=== PATIENT | female | born 1935 | race Caucasian/White ===

== ENCOUNTER 2017-03-12 11:29 | Emergency (ER) | payer OTHER ==
[2017-03-12 11:33] VITALS: BP 165/72; PULSE 72; TEMP 98.5; BMI 23.8
--- NOTE | 2017-03-12 11:56 | PDOC ---
History of Present Illness - General Chief Complaint: Injury Stated Complaint: RT WRIST/HAND INJURY Time Seen by Provider: 03/12/17 11:41 History Source: Patient Exam Limitations: No Limitations - History of Present Illness Initial Comments: 03/12/17 11:51 81 yr female with c/o laceration to the right hand after injury yesterday with a broken watch. Pt has applied bacitracin and bandaid. 03/12/17 17:50 Past History - Past Medical History Allergies/Adverse Reactions: Allergies Allergy/AdvReac Type Severity Reaction Status Date / Time No Known Allergies Allergy Verified 03/12/17 11:33 Cardiac Disorders: Yes (ANGINA,) HTN: Yes - Psycho/Social/Smoking Cessation Hx Anxiety: No Suicidal Ideation: No Smoking History: Never smoked Hx Alcohol Use: No Drug/Substance Use Hx: No Substance Use Type: None *Physical Exam - Vital Signs Last Vital Signs Temp Pulse Resp BP Pulse Ox 98.5 F 72 18 165/72 97 03/12/17 11:30 03/12/17 11:30 03/12/17 11:30 03/12/17 11:30 03/12/17 11:30 - Physical Exam General Appearance: Yes: Nourished, Appropriately Dressed HEENT: positive: EOMI, PAUL Neck: positive: Supple Respiratory/Chest: positive: Lungs Clear, Normal Breath Sounds Cardiovascular: positive: Regular Rhythm, Regular Rate Musculoskeletal: positive: Normal Inspection Extremity: positive: Normal Capillary Refill, Normal Inspection, Normal Range of Motion, Other (right dorsal surface with 1.0cm superficial skin tear , no active bleeding ) Integumentary: positive: Normal Color, Dry, Warm Neurologic: positive: Fully Oriented, Alert, Normal Mood/Affect, Normal Response , Motor Strength 5/5 Procedures - Additional Procedures Progress: 03/12/17 17:53 wound cleaned with saline, bacitracin placed and bandage placed nv intact Medical Decision Making - Medical Decision Making 03/12/17 17:54 cc: skin tear right hand on broken watch, no deformity nv intact tetanus is UTD states patient. wound is clean, pt had bacitracin placed prior to arrival wound cleaned and re-dressed dc inst given to pt and her follow up Tuesday with PMD *DC/Admit/Observation/Transfer Diagnosis at time of Disposition: Skin tear of hand without complication Qualifiers: Encounter type: initial encounter Laterality: right Qualified Code(s): S61.411A - Laceration without foreign body of right hand, initial encounter - Discharge Dispostion Disposition: HOME Condition at time of disposition: Good - Referrals Referrals: Panchito Richards MD [Primary Care Provider] - - Patient Instructions Additional Instructions: keep clean and dry apply bacitracin and bandaid daily follow with your doctor next week for a follow up wound check
== END 2017-03-12 12:04 | disposition home or self-care (01) ==
LOC: JERFT 11:29
DX: S61.411A Laceration without foreign body of right hand, initial encounter (principal); W45.8XXA Other foreign body or object entering through skin, initial encounter; W22.8XXA Striking against or struck by other objects, initial encounter; Y93.89 Activity, other specified; Y92.89 Other specified places as the place of occurrence of the external cause
CPT/HCPCS: 99281-25

== ENCOUNTER 2018-12-10 08:46 | Emergency (ER) | payer OTHER ==
[2018-12-10 08:51] VITALS: BP 163/62; PULSE 97; TEMP 97.8; BMI 22.3
--- NOTE | 2018-12-10 09:35 | PDOC ---
History of Present Illness - General Chief Complaint: Rash Stated Complaint: RASH Time Seen by Provider: 12/10/18 09:29 History Source: Patient, Care Provider Exam Limitations: No Limitations - History of Present Illness Initial Comments: 12/10/18 09:29 83 yo Fw/ a h/o angina, HTN, HLD comes in with daughter c/o diffuse generalized itchy rash which started 2 days ago after starting amoxicillin for a toothache. She took 3 doses total and started developing the rash. SHe has taken amoxicillin in the past without any issues. She called her dentist who told her to stop the antibiotic, prescribed her clindamycin which she took twice but the rash persists and even more itchy sometimes, hence the ED visit. NO other complaints today, no fever/chills, no NVD, no chest tightness, no throat tightness, no difficulty swallowing, no difficulty breathing, no shortness of breath, no swelling anywhere, no lip swelling/eye swelling. Pt also took benadryl 25mg BID Pt initially went to the dentist because her tooth was sensitive, painful and the gum around was a a little red. Pt is now symptom free, the tooth no longer hurts, is not sensitive and the gum redness resolved. NO face swelling/pain, no ear pain. 12/10/18 09:53 Past History - Past Medical History Allergies/Adverse Reactions: Allergies Allergy/AdvReac Type Severity Reaction Status Date / Time No Known Allergies Allergy Verified 12/10/18 08:50 Home Medications: Ambulatory Orders Amlodipine Besylate 5 mg PO DAILY 04/09/18 Aspirin [Ecotrin] 81 mg PO DAILY 04/09/18 Levothyroxine Sodium [Levoxyl] 50 mcg PO DAILY 04/09/18 Lisinopril 30 mg PO BID 04/09/18 Metoprolol Succinate 50 mg PO DAILY 04/09/18 Simvastatin 20 mg PO HS 04/09/18 Clindamycin [Cleocin -] 300 mg PO TID 12/10/18 Hydrocortisone 1% Cream [Hytone 1% Cream -] 1 applic TP BID #2 tube 12/10/18 Cardiac Disorders: Yes (ANGINA,) COPD: No HTN: Yes - Suicide/Smoking/Psychosocial Hx Smoking History: Never smoked Hx Alcohol Use: No Drug/Substance Use Hx: No Substance Use Type: None Review of Systems - Review of Systems Able to Perform ROS?: Yes Constitutional: No: Chills, Fever, Malaise, Night Sweats HEENTM: No: Eye Pain, Recent change in vision, Throat Pain Respiratory: No: Cough, Shortness of Breath Cardiac (ROS): No: Chest Pain, Palpitations, Chest Tightness ABD/GI: No: Diarrhea, Nausea, Vomiting, Abdominal cramping : No: Dysuria, Hematuria Musculoskeletal: No: Back Pain Integumentary: Yes: Rash Neurological: No: Headache, Numbness, Dizziness Psychiatric: No: Change in Appetite Endocrine: No: Unexplained Weight Loss *Physical Exam - Vital Signs Last Vital Signs Temp Pulse Resp BP Pulse Ox 97.8 F 97 H 18 163/62 99 12/10/18 08:47 12/10/18 08:47 12/10/18 08:47 12/10/18 08:47 12/10/18 08:47 - Physical Exam General Appearance: Yes: Nourished. No: Apparent Distress HEENT: positive: PAUL, Normal ENT Inspection, Normal Voice, Other (no uvula edema/erythema, no angioedema. Poor dentition, R upper jaw missing all molar teeth, premolar tooth in question without tenderness, no gum erythema, no fluctuance, no pus, no discharge, no swelling, no signs of infection). negative : Pale Conjunctivae, Scleral Icterus (R), Scleral Icterus (L), Pharyngeal Erythema Neck: positive: Supple. negative: Decreased range of motion, Stridor, Tender midline Respiratory/Chest: positive: Lungs Clear, Normal Breath Sounds. negative: Respiratory Distress, Accessory Muscle Use, Wheezing Cardiovascular: positive: Regular Rhythm, Regular Rate Gastrointestinal/Abdominal: positive: Normal Bowel Sounds, Soft. negative: Tender Musculoskeletal: positive: Normal Inspection. negative: CVA Tenderness, Decreased Range of Motion Extremity: positive: Normal Capillary Refill, Normal Inspection, Normal Range of Motion. negative: Tender, Pedal Edema Integumentary: positive: Normal Color, Dry, Rash (diffuse macupopapular erythematous rash with some urticarial areas on upper and lower extremities, back and torso, no vesicles, no burrows.). negative: Jaundice Neurologic: positive: Fully Oriented, Alert, Normal Mood/Affect Moderate Sedation - Procedure Monitoring Vital Signs: Procedure Monitoring Vital Signs Temperature 97.8 F 12/10/18 08:47 Pulse Rate 97 H 12/10/18 08:47 Respiratory Rate 18 12/10/18 08:47 Blood Pressure 163/62 12/10/18 08:47 O2 Sat by Pulse Oximetry (%) 99 12/10/18 08:47 Medical Decision Making - Medical Decision Making 12/10/18 09:50 83 yo F w/ rash, likely reaction to amoxicillin. Tooth in question without any signs of infection at the moment, no gum erythema, no pus, no discharge, no fluctuance. Will stop antibiotics for now. Will give benadryl 50mg 2-3 times a day, with hydrocortisone cream, which daughter prefers over systemic steroids. Pt will see PMD tomorrow for follow up and will make a follow up appointment with the dentist. Return for worsening/concerning symptoms *DC/Admit/Observation/Transfer Diagnosis at time of Disposition: Rash Allergic reaction Qualifiers: Encounter type: initial encounter Qualified Code(s): T78.40XA - Allergy, unspecified, initial encounter - Discharge Dispostion Disposition: HOME Condition at time of disposition: Stable - Prescriptions Prescriptions: Hydrocortisone 1% Cream [Hytone 1% Cream -] 1 applic TP BID #2 tube - Referrals Referrals: Panchito Richards MD [Primary Care Provider] - - Patient Instructions Printed Discharge Instructions: DI for Adverse Drug Reaction -- Allergic Additional Instructions: STOP amoxicillin and clindamycin, take benadryl 50mg 2-3 times a day as needed for 2-3 days. APply cortisone cream for 2-3 days and see your regular doctor tomorrow morning for reassessment. Return for worsening/concerning symptoms including difficulty breathing/swallowing, worsening rash. - Post Discharge Activity
== END 2018-12-10 09:54 | disposition home or self-care (01) ==
LOC: JERFT 08:46
DX: L27.0 Generalized skin eruption due to drugs and medicaments taken internally (principal); T36.0X5A Adverse effect of penicillins, initial encounter; Y92.018 Other place in single-family (private) house as the place of occurrence of the external cause; I25.119 Atherosclerotic heart disease of native coronary artery with unspecified angina pectoris; I10 Essential (primary) hypertension; E78.5 Hyperlipidemia, unspecified
CPT/HCPCS: 99281-25

== ENCOUNTER 2023-01-18 08:38 | Observation (INO) | payer OTHER ==
[2023-01-18 08:51] VITALS: BMI 22.6
[2023-01-18 09:40] LABS: BASO % 0.9 % (0-2.0); EOS % 4.2 % (0-4.5); HEMATOCRIT 39.5 % (32.4-45.2); LYMPH % 16.3 % (8-40); MCH 32.1 pg (25.7-33.7); MCHC 35.3 g/dl (32.0-36.0); MEAN CELL VOLUME 90.9 fl (80-96); NEUT % 67.6 % (42.8-82.8); PLATELET COUNT 386 10^3/uL (134-434); RBC 4.35 M/mm3 (3.60-5.2); RDW 13.1 % (11.6-15.6); WHITE BLOOD COUNT 7.3 K/mm3 (4.0-10.0)
[2023-01-18 09:46] LABS: INR 0.99 (0.83-1.09); PROTHROMBIN TIME (PATIENT) 11.5 SEC (9.7-13.0)
[2023-01-18 09:49] LABS: ACTIVATED PTT 33.9 SECONDS (25.2-36.5)
[2023-01-18 10:00] LABS: CALCIUM 9.6 mg/dL (8.5-10.1)
[2023-01-18 10:01] LABS: ALBUMIN 4.1 g/dl (3.4-5.0)
[2023-01-18 10:04] LABS: CREATININE 0.9 mg/dL (0.55-1.3)
[2023-01-18 10:06] LABS: BILIRUBIN,TOTAL 0.3 mg/dL (0.2-1); TOT PROT 8.2 g/dl (6.4-8.2)
[2023-01-18 10:37] LABS: PH,URINE 7.5 (5.0-8.0); URINE APPEARANCE CLEAR; URINE BILIRUBIN NEGATIVE (NEGATIVE); URINE COLOR YELLOW; URINE GLUCOSE (UA) NEGATIVE (NEGATIVE); URINE KETONE NEGATIVE (NEGATIVE); URINE LEUK ESTERASE NEGATIVE (NEGATIVE); URINE NITRITE NEGATIVE (NEGATIVE); URINE PROTEIN NEGATIVE (NEGATIVE); URINE UROBILINOGEN 0.2 mg/dL (0.2-1.0)
[2023-01-18] MEDS ORDERED: amLODIPine BESYLATE 5 MG TABLET (FP) PO ONE (12:56)
[2023-01-18] MEDS ORDERED: ACETAMINOPHEN 325 MG TABLET (FP) PO PRN (12:56)
[2023-01-18] MEDS ORDERED: amLODIPine BESYLATE 5 MG TABLET (FP) ONE (13:43)
[2023-01-18] MEDS ORDERED: ALPRAZolam 0.25 MG TABLET ONE (17:42)
[2023-01-18] MEDS: ALPRAZolam 0.25 MG TABLET PO PRN (17:45)
[2023-01-19] MEDS ORDERED: ATORVASTATIN CA 80 MG TABLET (FP) ONE (01:24)
[2023-01-19] MEDS: ATORVASTATIN CA 80 MG TABLET (FP) PO SCH ×3 (01:42→21:01)
[2023-01-19 06:42] LABS: HEMATOCRIT 36.4 % (32.4-45.2); HEMOGLOBIN 12.8 GM/dL (10.7-15.3); MCH 31.9 pg (25.7-33.7); MCHC 35.1 g/dl (32.0-36.0); MEAN CELL VOLUME 90.9 fl (80-96); PLATELET COUNT 351 10^3/uL (134-434); RBC 4.01 M/mm3 (3.60-5.2); RDW 13.1 % (11.6-15.6); WHITE BLOOD COUNT 7.8 K/mm3 (4.0-10.0)
[2023-01-19 07:01] LABS: ALBUMIN 3.7 g/dl (3.4-5.0); BILIRUBIN,TOTAL 0.4 mg/dL (0.2-1); BLOOD UREA NITROGEN 21.2 mg/dL (7-18); CALCIUM 9.3 mg/dL (8.5-10.1)
[2023-01-19 07:05] LABS: CREATININE 0.8 mg/dL (0.55-1.3)
[2023-01-19 07:06] LABS: TOT PROT 7.3 g/dl (6.4-8.2)
[2023-01-19] MEDS ORDERED: CLOPIDOGREL BISULFATE 75 MG TABLET (FP) ONE (09:05)
[2023-01-19] MEDS ORDERED: ASPIRIN COATED 81 MG TABLET.EC ONE (09:05)
[2023-01-19] MEDS ORDERED: amLODIPine BESYLATE 5 MG TABLET (FP) ONE (09:05)
[2023-01-19] MEDS: ASPIRIN COATED 81 MG TABLET.EC PO SCH (09:11)
[2023-01-19] MEDS: amLODIPine BESYLATE 5 MG TABLET (FP) PO SCH (09:11)
[2023-01-19] MEDS: CLOPIDOGREL BISULFATE 75 MG TABLET (FP) PO SCH (09:11)
[2023-01-19] MEDS ORDERED: ALPRAZolam 0.25 MG TABLET ONE (09:57)
[2023-01-19] MEDS: ALPRAZolam 0.25 MG TABLET PO PRN ×2 (10:03→20:31)
[2023-01-19] MEDS: VALSARTAN 80 MG TABLET PO SCH (13:10)
[2023-01-20] MEDS: LEVOTHYROXINE NA 88 MCG TABLET (FP) PO SCH (06:30)
[2023-01-20] MEDS: VALSARTAN 80 MG TABLET PO SCH (09:57)
[2023-01-20] MEDS: ASPIRIN COATED 81 MG TABLET.EC PO SCH (09:57)
[2023-01-20] MEDS: CLOPIDOGREL BISULFATE 75 MG TABLET (FP) PO SCH (09:57)
[2023-01-20] MEDS: amLODIPine BESYLATE 5 MG TABLET (FP) PO SCH (09:57)
[2023-01-20] MEDS ORDERED: ATORVASTATIN CA 20 MG TABLET (FP) PO SCH (12:41)
[2023-01-20] MEDS: DONEPEZIL HCL 5 MG TABLET (FP) PO SCH (15:01)
[2023-01-20] MEDS: ALPRAZolam 0.25 MG TABLET PO PRN (21:18)
[2023-01-21] MEDS: LEVOTHYROXINE NA 88 MCG TABLET (FP) PO SCH (06:45)
[2023-01-21 07:01] VITALS: RESP 20
[2023-01-21 08:35] VITALS: BP 147/73; PULSE 56; TEMP 98
[2023-01-21] MEDS: amLODIPine BESYLATE 5 MG TABLET (FP) PO SCH (09:47)
[2023-01-21] MEDS: DONEPEZIL HCL 5 MG TABLET (FP) PO SCH (09:47)
[2023-01-21] MEDS: VALSARTAN 80 MG TABLET PO SCH (09:47)
[2023-01-21] MEDS: ASPIRIN COATED 81 MG TABLET.EC PO SCH (09:48)
[2023-01-21] MEDS ORDERED: ACETAMINOPHEN 325 MG TABLET (FP) PO PRN (11:34)
[2023-01-21] MEDS ORDERED: ALPRAZolam 0.25 MG TABLET PO PRN (11:34)
[2023-01-21] MEDS ORDERED: ATORVASTATIN CA 20 MG TABLET (FP) PO SCH (22:00)
[2023-01-22] MEDS ORDERED: LEVOTHYROXINE NA 88 MCG TABLET (FP) PO SCH (07:00)
[2023-01-22] MEDS ORDERED: amLODIPine BESYLATE 5 MG TABLET (FP) PO SCH (10:00)
[2023-01-22] MEDS ORDERED: VALSARTAN 80 MG TABLET PO SCH (10:00)
[2023-01-22] MEDS ORDERED: ASPIRIN COATED 81 MG TABLET.EC PO SCH (10:00)
[2023-01-22] MEDS ORDERED: DONEPEZIL HCL 5 MG TABLET (FP) PO SCH (10:00)
== END 2023-01-21 16:51 | disposition home or self-care (01) ==
LOC: JER 08:38 → UNDOADMOB 11:10 → JERBED 11:10 → INTOOBSV 11:10 → JERBED 15:27 → J4W 01-19 10:33 → J6S 01-21 11:13
PROVIDERS: ADMIT Family Medicine; ATTEND Family Medicine
DX: R41.82 Altered mental status, unspecified (principal); I50.9 Heart failure, unspecified; I35.0 Nonrheumatic aortic (valve) stenosis; E78.5 Hyperlipidemia, unspecified; I11.0 Hypertensive heart disease with heart failure; I50.30 Unspecified diastolic (congestive) heart failure; I25.2 Old myocardial infarction; F30.9 Manic episode, unspecified; F41.9 Anxiety disorder, unspecified; I44.7 Left bundle-branch block, unspecified
CPT/HCPCS: 0241U-QW; 36415; 70450-TC; 70551-TC; 71045-TC-FY; 80053; 80061; 81003; 82607; 82746; 82962; 83036; 84443; 84484; 85025; 85027; 85610; 85730; 87086; 93005; 93010; 93306-TC; 97116-GP; 97161-GP; 99285-25; G0378